=== PATIENT | male | born 1980 | race Caucasian/White ===

== ENCOUNTER 2017-02-11 03:19 | Emergency (ER) | payer SELFPAY ==
[~2017-02-11] VITALS: Ht 175.3 cm; Wt 88.6 kg
[2017-02-11] MEDS ORDERED: NAPROSYN500 MG PO (04:11)
[2017-02-11 04:25] VITALS: BP 105/65
== END 2017-02-11 04:26 | disposition home or self-care (01) | DRG 563 ==
LOC: ED 03:19
DX: S86.911A Strain of unspecified muscle(s) and tendon(s) at lower leg level, right leg, initial encounter (principal); F17.210 Nicotine dependence, cigarettes, uncomplicated; J45.909 Unspecified asthma, uncomplicated; W22.8XXA Striking against or struck by other objects, initial encounter; Y92.009 Unspecified place in unspecified non-institutional (private) residence as the place of occurrence of the external cause